=== PATIENT | male | born 1930 | race Caucasian/White ===

== ENCOUNTER 2018-12-01 08:22 | Inpatient (IN) | payer MEDICARE ==
[~2018-12-01] VITALS: Ht 172.7 cm; Wt 75.3 kg
[~2018-12-01 08:22] MED LIST: ASPIR 8181 MG PO; FLOMAX0.4 MG PO; GLUCOPHAGE XR500 MG PO; LAXATIVE5 M1 PO; MELATONIN5 M2 PO; NESINA12.5 MG PO; PRINIVIL10 MG PO; PROSCAR5 MG PO; VITAMIN B-12500 MCG PO; ZOLOFT25 MG PO; [UNRECOGNIZED DRUG - OTHER] OU
--- OUTSIDE RECORDS SUMMARY | 2018-12-01 08:24 | XMS ---
PreManage Notification: TAMEKA HERNANDEZ Security Wrinkle Chaser Events No recent Security Events currently on file CRITERIA MET - [facility] [place] - 2 Visits in 30 Days CARE PROVIDERS Name Unknown Jail Facility Current PHONE: [phone] WILLIAMS BERNAL Internal Medicine 11/28/2018-Current PHONE: [phone] EDGARD BAKER Primary Care 06/10/2014-Current PHONE: Unknown Mary has no Care Guidelines for this patient. [facility] VISIT COUNT (12 MO.) 1 Sabrina Carroll Sophia DaizArnoldo 2 GREG Rodarte TOTAL 3 NOTE: Visits indicate total known visits. ED/UCC VISIT TRACKING (12 MO.) 12/01/2018 08:22 [facility] TYPE: Emergency COMPLAINT: - ALTERED LOC 11/27/2018 11:21 [facility] TYPE: Emergency COMPLAINT: - URINE PROBLEM DIAGNOSES: - Hematuria, unspecified - care home (current) use of aspirin - Other long term care pharmacist (current) drug therapy - Other mechanical complication of indwelling urethral catheter, [facility] DIAGNOSES: - Acute kidney failure, unspecified - Retention of urine, unspecified - Sepsis, unspecified organism - Disorientation, unspecified - Other specified abnormal findings of blood chemistry - Fever (75 Years Old Or >) - Tubulo-interstitial nephritis, not specified as acute or chronic 11/04/2018 11:55 [facility] Balaji [place] TYPE: Urgent Care DIAGNOSES: - Dysuria - Dysuria INPATIENT VISIT TRACKING (12 MO.) 11[facility]07[facility]2018 17[facility] DIAGNOSES: - Severe sepsis without septic shock - Benign prostatic hyperplasia with lower urinary tract symptoms - Other specified abnormal findings of blood chemistry - Obstructive and reflux uropathy, unspecified - Acute kidney failure, unspecified - Acute cystitis without hematuria - Chronic kidney disease, stage 3 (moderate) - Other obstructive and reflux uropathy - Disorientation, unspecified - Tubulo-interstitial nephritis, not specified as acute or chronic - Sepsis, unspecified organism - Retention of urine, unspecified [email or web address]
--- NOTE | 2018-12-01 11:39 | NUR ---
REPORT VIA PONE RECEIVED FROM JJ GALINDO IN ED.
--- NOTE | 2018-12-01 12:00 | NUR ---
PT ARRIVED TO FLOOR VIA STRETCHER. TRASAFERED SLIDE WITH 3PA. PT IS CONFUSED AND USES INAPPROPRIATE WORDS AT TIMES. DISORIENTED TO SELF, PLACE AND TIME. DAUGHTER AT BEDSIDE TO GIVE HISTORY. ORIENTED TO ROON, MEDICATIONS ADMINISTERED AND BOLUS STARTED. IV FLUIDS HUNG. LUNCH ORDERED. REPPORTS PAIN AT TIMES TO LEFT KNEE. KNEE APPEARS SWOLLEN AND IS HOT TO THE TOUCH. MEDICATION APPLIED. CALL LIGHT IN REACH. WARM BLANKET PROVIDED.
--- NOTE | 2018-12-01 13:18 | NUR ---
IMAGING IN TO XRAY LEFT KNEE.
--- NOTE | 2018-12-01 13:46 | NUR ---
PATIENT IN BED RESTING, AT BEDSIDE. FRESH WATER GIVEN. CALL LIGHT IN REACH. NO FURTHER NEEDS AT THIS TIME.
--- NOTE | 2018-12-01 14:35 | NUR ---
MANUEL GALINDO FROM [facility] CALLED FLOOR FOR UPDATE ON PT. PLAN OF CARE DISCUSSED. QUESTIONS ANSWERED.
--- NOTE | 2018-12-01 14:54 | NUR ---
ANTIBIOTIC STARTED. PT RESTING IN BED, DAUGHTER AT BEDSIDE. REPORTS TOLERABLE PAIN TO LEFT KNEE. REFUSED TYLENOL OR OTHER INTERVENTIONS. CALL LIGHT IN REACH. DENIES FURTHER NEEDS.
--- NOTE | 2018-12-01 15:41 | NUR ---
PT ADMITTED TODAY WITH CONFUSION R/T UTI. PT RECEIUVING IV FLUIDS AND ANTIBIOTICS. PT WITH LEFT KNEE PAIN AND SCHEDULED CREAM. WAITHING ON X RAY TO LEFT KNEE. PT WITH TOLERABLE PAIN, 1-2 PA AT THIS TIME. PT HAS NOT GOTTEN OUT OF BED YET. FRIEDMAN CHANGED TODAY AND HAS SLIGHTLY CLOUDY YELLOOW URINE. U/O IS Q/S. PT WITH GOOD PO INTAKE. DISORIENTED TO ALL AT THIS TIME BUT ABLE TO HAVE CONVERSATIONS.
--- NOTE | 2018-12-01 16:30 | NUR ---
RECIEVED REPORT FROM JOSIE GUTIERREZ. PT RESTING QUIETLY IN BED WITH DAUGHTER AT BEDSIDE.
[2018-12-01] MEDS ORDERED: CORTISONE60 GM TOP (17:43)
--- NOTE | 2018-12-01 17:44 | NUR ---
Medications reconciled using MARS from [facility]
--- NOTE | 2018-12-01 18:10 | NUR ---
PT RESTING QUIETLY WITH DAUGHTER IN ROOM. RESPIATORY THEARPY JUST LEFT ROOM WORKING WITH PT ON IS. PT AND DAUGHTER STATE AN UNDERSTANDING AND WILL WORK WITH STAFF ON IS. PT RECIEVED VOLTAREN GEL AND INSULIN. PT AND DAUGHTER HAVE NO FURTHER NEEDS/QUESTIONS/CONCERNS AT THIS TIME.
--- NOTE | 2018-12-01 18:27 | NUR ---
PATIENT IN BED, VISITOR BEDSIDE. CALL LIGHT IN REACH. NO FURTHER NEEDS AT THIS TIME.
--- NOTE | 2018-12-01 19:25 | NUR ---
SHIFT REPORT RECEIVED FROM [facility] RN TARIK AND ALDO AT BEDSIDE. PT AWAKE AND RESTING IN BED, 2LNC IN PLACE. PT APPEARS COMFORTABLE, NO SIGNS OF DISTRESS NOTED. FAMILY IN ROOM, CALL LIGHT IN REACH. IV ABX COMPLETED BEFORE THIS RN ENTERED ROOM , PRIMARY LINE OF IV FLUIDS INFUSING PER MD ORDERS. PT DENIES PAIN OR NEEDS AT THIS TIME. BED ALARM ON FOR SAFETY.
--- NOTE | 2018-12-01 20:15 | NUR ---
PRIMARY RN NOTIFIED RE TEMP.
--- NOTE | 2018-12-01 20:20 | NUR ---
INFORMED BY HARRIS SHAW OF ORAL TEMP RESULT OF 101.8. DR GUERIN MADE AWARE, NEW VERBAL ORDERS READ BACK FOR BLOOD CULTURES X2. ORDERS PUT IN BY WATCH PARTS INSPECTORJOSIE JACQUES. LAB NOTIFIED BY WATCH PARTS INSPECTOR, AWAITING LAB'S ARRIVAL THEN WILL ADMINISTER PRN TYLENOL.
--- NOTE | 2018-12-01 20:30 | NUR ---
COMPATABILITY BETWEEN IV ZOSYN AND LACTATED RINGERS UNCERTAIN, DEPENDING ON SPECIFIC FORMULATION USED PER CLINICAL PHARMACOLOGY. SPOKE TO TELEPHARMACY, RESULTS UNCERTAIN. DISCUSSED FINDINGS WITH NURSERYPERSONJOSIE JACQUES. CALLED AND SPOKE TO ALEX FROM PHARMACY, VERIFIED IV COMPATABILITY BETWEEN IV ZOSYN AND IV LACTATED RINGERS. PER ALEX, "WE USE THE NEW FORMULATIONS".
--- NOTE | 2018-12-01 20:30 | NUR ---
ASSESSMENT COMPLETE, SCHEDULED MEDICATIONS ADMINISTERED (SEE EMAR). PT A/O TO SELF, DENIES PAIN, VSS, 2LNC IN PLACE. IV FLUIDS INFUSING PER MD ORDERS, IV SITE WNL. DAUGHTER IN ROOM, NO FURTHER NEEDS AT THIS TIME. CALL LIGHT IN REACH. BED ALARM ON FOR SAFETY.
--- NOTE | 2018-12-01 21:50 | NUR ---
LAB IN ROOM TO COMPLETE BLOOD CULTURES.
--- NOTE | 2018-12-01 22:15 | NUR ---
ORAL TEMP RESULT OF 100.0. PRN TYLENOL ADMINISTERED, EXCESS BLANKET REMOVED, PT ENCOURAGED TO USE IS, PT AND PT'S DAUGHTER VERBALIZED UNDERSTANDING. WILL MONITOR. SCHEDULED IV ABX INFUSING PER MD ORDERS, IV SITE WNL. NO FURTHER NEEDS, CALL LIGHT IN REACH.
--- NOTE | 2018-12-02 01:15 | NUR ---
PT RESTING IN BED, EYES CLOSED. RR WNL. NO SIGNS OF DISTRESS NOTED, PT APPEARS COMFORTABLE. IV ABX INFUSING, SITE WNL. NO FURTHER NEEDS, CALL LIGHT IN REACH.
--- NOTE | 2018-12-02 01:15 | NUR ---
PT MAINTAINING O2 SATS IN UPPER 90'S. PT TIRATED TO 1LNC, MAINTAINING SATSIN 90S. WILL MONITOR, NO DISTRESS NOTED.
--- NOTE | 2018-12-02 03:15 | NUR ---
PT MAINTAINING O2 SATS IN MID 90'S ON 1LNC, PT TITRATED TO RA AT THIS TIME. O2 SAT MAINTAINING IN LOW TO MID 90'S, NO DISTRESS NOTED, PT APPEARS COMFORTABLE. CALL LIGHT IN REACH, BED ALARM ON FOR SAFETY. DAUGHTER IN ROOM.
--- NOTE | 2018-12-02 05:12 | NUR ---
PT SLEPT ON AND OFF THIS SHIFT. PT A/O TO SELF, VSS. PT ORIGINALLY ON 2LNC, TITRATED TO RA. ORAL TEMP OF 101.8, CULTURES COLLECTED. RESOLVED AFTER TYLENOL. BED ALARM ON FOR SAFETY. IV FLUIDS AND IV ABX PER MD ORDERS, IV SITE WNL, FIELD START. 60 G CARB DIET, TOLERATING WELL, NO NAUSEA THIS SHIFT. SCHEDULED ACCUCHECKS, INSULIN SS. PT NOT YET OUT OF BED THIS SHIFT, ORDERS FOR OT AND PT. NO PAIN THIS SHIFT. DAUGHTER IN ROOM.
--- NOTE | 2018-12-02 06:39 | NUR ---
iv abx infusing per md orders, iv site wnl. pt reports 8-9/10 pain, prn tylenol given for pain to left knee. assessment complete, no new changes or concerns. no increase in edema to left knee, will continue to monitor. vss, pt on ra, o2 sat 92%, hr 66. no further needs, call light in reach. bed alarm on for safety. daughter in room.
--- NOTE | 2018-12-02 07:20 | NUR ---
RECIEVED REPORT FROM JOSIE SAWYER. PT RESTING QUIETLY WITH DAUGHTER AT BEDSIDE. CALL LIGHT WITHIN REACH. PT HAS NO NEEDS/CONCERNS AT THIS TIME.
--- NOTE | 2018-12-02 07:58 | NUR ---
PATIENT SITTING UP IN BED EATING BREAKFAST,DAUGHTER IN ROOM. CALL LIGHT IN REACH. NO FURTHER NEEDS AT THIS TIME.
--- NOTE | 2018-12-02 09:30 | NUR ---
PT RESTING QUIETLY IN BED. DAUGHTER, DAUGHTER IN LAW, AND SON IN LAW ARE IN ROOM WITH PT. MD IN ROOM AT THIS TIME DISCUSSING PLAN.
--- NOTE | 2018-12-02 10:39 | NUR ---
FRIEDMAN CATHETER REMOVED PER MD ORDER. PT TOLERATED REMOVAL WELL.
--- NOTE | 2018-12-02 13:24 | NUR ---
PT RESTING QUIETLY IN BED. DAUGHTER JUST LEFT TO GO TO [place]. PT 1ST IV START WAS INFILTRATED. IV RESTARTED ON RIGHT FOREARM 22G. PT TOLERATED WELL. IV FLUIDS RUNNING. CALL LIGHT WITHIN REACH.
--- NOTE | 2018-12-02 14:05 | NUR ---
PT HAS VISITOR THAT HE SEEMS TO BE VERY ENGAGED WITH. WILL CHECK BACK LATER
--- NOTE | 2018-12-02 14:05 | NUR ---
TALKED WITH THE DAUGHTER KENNETH FOR A FEW MINUTES AND SHE STATED THAT SHE AND OTHER SIBLINGS WERE TRYING TO GET [facility]. SHE HAD SOME RELEASE OF INFORMATION FORMS BUT IT IS THE CT REQUESTING INFOR FROM [facility]. CALLED AND TALKED TO DANE AT CT CASE MANAGEMENT OFFICE. AND SHE STATED WE COULD FAX THEM TO HER AFTER TRYING TO GET A HOLD OF [facility] D[facility] SEVERAL TIMES WITH HIM NOT RETURNING MESSAGES. AND SHE WILL SEE THAT THEY GET SCANNED INTO THE SYSTEM FOR THEM.
--- NOTE | 2018-12-02 14:38 | NUR ---
PATIENT IN BED, DAUGHTER BEDSIDE. FRESH WATER GIVEN. CALL LIGHT IN REACH. NO FURTHER NEEDS AT THIS TIME.
--- NOTE | 2018-12-02 15:17 | NUR ---
FAXED CHART NOTES INCLUDING FACE SHEET, ER NOTES AND SUMMARY, H AND P, PROG NOTE, PT AND OT EVALS AND [facility]ES [facility] TO [facility]. RECEIVED FAX CONFIRMATION.
--- NOTE | 2018-12-02 15:27 | NUR ---
UPDATED MD ON LITTLE URINE OUTPUT FOR PT AND BLADDER SCAN THAT WAS COMPLETED WITH 363ML. WITH NO NEW ORDERS AT THIS TIME. MOVED PT TO ROOM 112 TO 107. PT HAS NO CONCERNS/NEEDS AT THIS TIME.
--- NOTE | 2018-12-02 16:01 | NUR ---
NEW BAG OF IV FLUIDS LR HANGING AT 100ML/HR. PT READING MAGAZINE WITH DAUGHTER AT BEDSIDE. PT HAS NO CONCERNS/NEEDS AT THIS TIME. CALL LIGHT WITHIN REACH AND BED ALARM ON.
--- NOTE | 2018-12-02 17:57 | NUR ---
PT SITTING UP IN CHAIR EATING SHAUNNA ZEYNEP THAT DAUGHTER BROUGHT IN. TWIN DAUGTHERS AT BEDSIDE. PT AMBUALTED TO BATHROOM POST VOID RESIDUAL BEING DONE. PT INSULIN AND VOLATRIN GEL GIVEN. CALL LIGHT WITHIN REACH. NO NEEDS/CONCERNS AT THIS TIME.
--- NOTE | 2018-12-02 18:05 | NUR ---
MD NOTIFIED OF POST RESIDUAL VOID SCAN OF 741ML. MD ORDERED TO PLACE FRIEDMAN CATHETER IN.
--- NOTE | 2018-12-02 18:12 | NUR ---
PATIENT UP TO BATHROOM THEN BACK TO BED, 1PA FWW. NO VOID, RN NOTIFIED. RN REQUESTED BLADDER SCAN DONE, 741mL, RN NOTIFIED. FRESH WATER GIVEN. FAMILY IN ROOM. CALL LIGHT IN REACH. NO FURTHER NEEDS AT THIS TIME.
--- NOTE | 2018-12-02 18:40 | NUR ---
14 TELUGU COUDE PLACED AT THIS TIME PER MD FOR URINARY RETENTION. STERILE FIELD MAINTAINTED THROUGOUT PROCEDURE. PT TOLERATED WELL. 8.5ML STERILE WATER PLACED IN SECURMENT BULB OF FRIEDMAN. BED ALARM ON. DAARAMISTHERS AT BEDSIDE.
--- NOTE | 2018-12-02 18:57 | NUR ---
PT UP IN HALLWAY WITH PHYCIAL THERAPY 1PA WITH FWW. PT FRIEDMAN CATHETHER REMOVED THIS AM FOR VOIDING TRIAL. FAILED. FRIEDMAN CATHETER PLACED AT 1830. PT HAS GOOD APPETITIE. PT CONTINUES TO BE FORGETFUL/CONFUSED INTERMINTLY.
--- NOTE | 2018-12-02 20:00 | NUR ---
PATIENT HAS NO CO OF PAIN. DAUGHTER AT BEDSIDE WATCHING TV WITH PATIENT.
--- NOTE | 2018-12-02 22:00 | NUR ---
PATIENT CONTINUES TO WATCHI TV WITH DAUGHTER. WATER REFILLED. NO NEEDS AT THIS TIME. CALL LIGHT IN REACH.
--- NOTE | 2018-12-02 23:00 | NUR ---
CAME IN TO INSTRUCT PATIENT AND DAUGHTER HOE TO USE THE CALL LIGHT TO TURN OFF THE OVER HEAD LIGHT. THEY BOTH VERBALIZED UNDERSTANDING.
--- NOTE | 2018-12-03 01:05 | NUR ---
PATIENT RESTING QUIETLY SUPINE, RESPS 16, DAUGHTER SLEEPING AT BEDSIDE. PATIENT IN NO DISTRESS, CALL LIGHT IN REACH.
--- NOTE | 2018-12-03 03:11 | NUR ---
PATIENT RESTING QUIETLY, EYES CLOSED, RESPIRATIONS REGULAR AND EVEN AT 16. CALL LIGHT IN REACH.
--- NOTE | 2018-12-03 05:05 | NUR ---
PATIENT HAS HAD NO ISSUES DURING THE NIGHT. HAS RESTED WITH EYES CLOSED AND EVEN AND REGULAR RESPIRATIONS THROUGH THE NIGHT. DAUGHTER HAS REMAINED SLEEPING AT BEDSIDE. IV WNL. VS HAVE BEEN STABLE AND FRIEDMAN PUTTING OUT QS URINE. PATIENT HAS DENIED PAIN. CALL LIGHT IS IN REACH.
--- NOTE | 2018-12-03 07:35 | NUR ---
RECIEVED REPORT FROM JOSIE SANTA. PT RESTING QUEITLY IN BED WITH DAUGHTER AT BEDSIDE. CALL LIGHT WITHIN REACH.
--- NOTE | 2018-12-03 08:07 | NUR ---
PATIENT RESTING IN BED, CALL LIGHT IN REACH, FAMILY IN ROOM. PATIENT REFUSED AM CARE AND REQUESTED TO BE LEFT ALONE UNTIL BREAKFAST ARRIVES. NO OTHER NEEDS AT THIS TIME.
--- NOTE | 2018-12-03 09:51 | NUR ---
MOVED PT FROM HOSPITAL BED TO CHAIR. PT READING A NEWSPAPER AT THIS TIME. ASSESSMENT COMPLETE AND AM MEDICATIONS ADMINISTERED. PT STATES THAT HE IS HAVING PAIN IN HIS LEFT KNEE 6/. TYELNOL GIVEN. DAUGTHER AT BEDSIDE. PT HAS DISCHARGE AROUND FRIEDMAN CATHETER AND ENTRANCE TO PENIS THAT IS CREAMY WHITE. NOTIFIED, NO NEW ORDERS AT THIS TIME. FRIEDMAN CATHETER WAS CHANGED YESTERDAY. PT HAS NO CONCERNS/QUESTIONS AT THIS TIME. CALL LIGHT WITHIN REACH.
--- NOTE | 2018-12-03 10:30 | NUR ---
PT RESTING QUIETLY IN CHAIR WITH DAUGHTER AT BEDSIDE. IN ROOM PLACING A INJECTION IN LEFT KNEE. PT TOLERATED PROCEDURE WELL. NO FURTHER NEEDS/CONCERNS AT THIS TIME.
--- NOTE | 2018-12-03 12:07 | NUR ---
PT CURRENTLY EATING SANDWICH AND BAG OF CHIPS WITH LEMONADE. PT DAUGHTER AT BEDSIDE. PT STATES THAT THE PAIN IN HIS LEFT LEG HAS DECREASED AND ONLY REALLY PAINFUL WHEN HE STARTS TO WALK. INSULIN ADMINISTERED AND VOLTAREN GEL APPLIED. PT HAS NO NEEDS/CONCERNS AT THIS TIME. CALL LIGHT WITHIN REACH.
--- NOTE | 2018-12-03 12:42 | NUR ---
PT SITTING IN CHAIR, VISITING WITH FAMILY. GAVE BLESSING, WILL CONTINUE TO FOLLOW
--- NOTE | 2018-12-03 14:00 | NUR ---
PT AMBULATING TO RESTROOM TO TAKE A SHOWER. PT DISCONNECTED FROM IV PUMP AND WILL RE-START AFTER SHOWER.
--- NOTE | 2018-12-03 14:54 | NUR ---
THIS CARDIOLOGY CLINICAL NURSE SPECIALIST ASSISTED PATIENT UP INTO BATHROOM. PATIENT HAD A BM AND TRANSFERRED TO A SHOWER CHAIR. PATIENT SHOWERED WITH SOME ASSISTANCE. THIS CARDIOLOGY CLINICAL NURSE SPECIALIST PERFORMED CATH CARE, PATIENT DRESSED IN CLEAN GOWN AND AMBULATED BACK TO BEDSIDE RECLINER. THIS CARDIOLOGY CLINICAL NURSE SPECIALIST ASSISTED PATIENT TO SHAVE. PATIENT HAS ICE PACKS ON HIS KNEE, AND CALL LIGHT IN REACH. DAUGHTER IN ROOM. NO OTHER NEEDS AT THIS TIME.
--- NOTE | 2018-12-03 15:00 | NUR ---
PT IV FLUIDS RECONNECTED AFTER SHOWER. PT STATES THAT HE SMELLS NICE NOW AND ENJOYED THE SHOWER. PT RESTING IN CHAIR WITH DAUGTHER AT BEDS. NO FURTHER NEEDS/CONCERNS. CALL LIGHT WITHIN REACH.
--- NOTE | 2018-12-03 16:17 | NUR ---
PT DID NOT REMEMBER WHAT HE ORDERED FOR DINNER. CONTACTED DIETARY AND GAVE ORDER. PT HAS NO OTHER CONCERNS/NEEDS AT THIS TIME. CALL LIGHT WITHIN REACH. DAUGHTER AT BEDSIDE.
--- NOTE | 2018-12-03 17:05 | NUR ---
PT EATING DINNER WITH DAUGHTER AT BEDSIDE. INSULIN GIVEN AND VOLTAREN GEL APPLIED. PT STATES PAIN IS MUCH BETTER. PT SITTING UP IN CHAIR AT THIS TIME. CALL LIGHT WITHIN REACH.
--- NOTE | 2018-12-03 19:50 | NUR ---
PATIENT IN BED WATCHING TV. NO COMPLAINTS OF PAIN, AND DAUGHTERS AT BEDSIDE. CALL LIGHT IN REACH.
--- NOTE | 2018-12-03 21:50 | NUR ---
PATIENT AMBULATED WITH 1PA AND FWW TO THE REST ROOM AND VOIDED AND HAD HAD A BM AND THEN BACK TO BED IN THE SAME MATTER. ICE TO LT KNEE. CALL LIGHT IN REACH. WATER FILLED. DAUGHTER AT BEDSIDE.
--- NOTE | 2018-12-04 00:15 | NUR ---
PATIENT RESTING QUIETLY, EYES CLOSED REPIRATIONS EVEN AND REGULAR AT 16. PATIENT IN NO DISTRESS. FRIEDMAN DRAINING WELL. CALL LIGHT IN REACH. DAUGHTER AT BEDSIDE.
--- NOTE | 2018-12-04 02:10 | NUR ---
PATIENT RESTING QUIETLY. CALL LIGHT IN REACH. EYES CLOSED AND RESPIRATIONS REGULAR AND EVEN. IV INFUSING WNL AND DAUGHTER AT BEDSIDE.
--- NOTE | 2018-12-04 04:10 | NUR ---
PATIENT WAKE WATCHING TV IN BED, NO C/O PAIN, DAUGHTER AT BEDSIDE.
--- NOTE | 2018-12-04 05:51 | NUR ---
PATIENT RESTED MOST OF THE NIGHT. IV IS INFUSING AND IV WNL. PATIENT HAS AMBULATED TO THE BR WITH 1PA AND FWW X2 THIS SHIFT AND VOIDED AND HAD A BM EACH TIME. DAUGHTER REMAINS AT BEDSIDE. PATIENT IS STILL CONFUSED, BUT PLEASANT.
--- NOTE | 2018-12-04 07:38 | NUR ---
REPORT RECIEVED FROM BREAKER HAND RN. PT IN BED AWAKE. DAUGHTER AT BEDSIDE. LR AT 75ML/HR INFUSING. CALL LIGHT IN REACH. DENIES NEEDS AT THIS TIME.
--- NOTE | 2018-12-04 07:48 | NUR ---
SBA WITH FWW TO CHAIR FOR BREAKFAST.
--- NOTE | 2018-12-04 09:17 | NUR ---
PT SYD FOR SHOWER WIT HASSISTANCE FROM [facility].
--- NOTE | 2018-12-04 09:30 | NUR ---
PT UP WORKING WITH PHYSICAL THERAPY.
[2018-12-04] MEDS ORDERED: CIPROFLOXACIN250 MG PO (09:45)
--- NOTE | 2018-12-04 15:00 | NUR ---
REPORT CALLED TO [facility].
== END 2018-12-04 15:00 | DRG 698 ==
LOC: ED 08:22 → MS 11:27
PROVIDERS: ADMIT Internal Medicine
DX: T83.511A Infection and inflammatory reaction due to indwelling urethral catheter, initial encounter (principal); G93.41 Metabolic encephalopathy; I62.03 Nontraumatic chronic subdural hemorrhage; N39.0 Urinary tract infection, site not specified; B95.2 Enterococcus as the cause of diseases classified elsewhere; E11.22 Type 2 diabetes mellitus with diabetic chronic kidney disease; I12.9 Hypertensive chronic kidney disease with stage 1 through stage 4 chronic kidney disease, or unspecified chronic kidney disease; N18.3 Chronic kidney disease, stage 3 (moderate); E86.0 Dehydration; F39 Unspecified mood [affective] disorder; M17.12 Unilateral primary osteoarthritis, left knee; N40.1 Benign prostatic hyperplasia with lower urinary tract symptoms; R33.8 Other retention of urine; F17.220 Nicotine dependence, chewing tobacco, uncomplicated; Z66 Do not resuscitate; Z79.84 Long term (current) use of oral hypoglycemic drugs; Z79.82 Long term (current) use of aspirin; Z79.899 Other long term (current) drug therapy
CPT/HCPCS: 36415; 70450; 71045; 73560; 80053; 81001; 83605; 85025; 85651; 87077; 87088; 87186; 92523; 96361; 96365; 97110; 97116; 97163; 97166; 97530; 97535; 99285-25; J0696; J1650; J1815; J2543; J3301; J7040; J7060; J7120